=== PATIENT | male | born 1940 | race Caucasian/White ===

== ENCOUNTER 2016-12-15 05:50 | Emergency (ER) | payer MEDICARE ==
[~2016-12-15] VITALS: Ht 170.2 cm; Wt 63.5 kg
[2016-12-15] MEDS ORDERED: EPINEPHRINE (1:10,000) SYRINGE 1 MG/10 ML DISP.SYRIN ONE ×2 (08:36→08:37)
[2016-12-15] MEDS ORDERED: AMIODARONE 150 MG/3 ML VIAL IV ONE (08:36)
== END 2016-12-15 07:10 | disposition expired ==
LOC: ER 05:51
DX: I46.9 Cardiac arrest, cause unspecified (principal)
CPT/HCPCS: A4606; J0171; J0282